=== PATIENT | male | born 1945 | race Caucasian/White ===

== ENCOUNTER 2022-03-11 02:46 | Inpatient (IN) | payer BC ==
[~2022-03-11] VITALS: Ht 177.8 cm; Wt 77.2 kg
[2022-03-11 03:35] LABS: ALANINE AMINOTRANSFERASE 147 U/L (12-78); ALBUMIN 2.2 G/DL (3.4-5.0); ALBUMIN/GLOBULIN RATIO 0.6 (1.1-1.5); ALKALINE PHOSPHATASE 111 IU/L (46-116); ANION GAP 7 (8-16); ASPARTATE AMINO TRANSFERASE 137 U/L (10-37); BLOOD UREA NITROGEN 28 MG/DL (7-18); BUN/CREATININE RATIO 21.7 (5.4-32.0); CALCIUM 8.3 MG/DL (8.5-10.1); CHLORIDE 102 MMOL/L (99-107); CREATININE 1.29 MG/DL (0.60-1.10); GLUCOSE 126 MG/DL (70-104); LIPASE 142 U/L (73-393); POTASSIUM 3.6 MMOL/L (3.5-5.1); SODIUM 135 MMOL/L (135-145); TOTAL CARBON DIOXIDE 25.9 MMOL/L (24-32); TOTAL PROTEIN 5.8 G/DL (6.4-8.2); eGFR 54 ML/MIN
[2022-03-11 03:52] LABS: BASOPHILS # (AUTO) 0.1 X10'3 (0-0.2); BASOPHILS % (AUTO) 0.6 % (0-1); EOSINOPHILS % (AUTO) 0.1 % (0-6); HEMATOCRIT 35.2 % (42.0-52.0); LYMPHOCYTES # (AUTO) 0.5 X10'3 (1.1-4.8); LYMPHOCYTES % (AUTO) 3.9 % (21-51); MEAN CORPUSCULAR HEMOGLOBIN 30.2 PG (27.0-31.0); MEAN CORPUSCULAR HGB CONC 34.1 g/dL (33.0-36.5); MEAN CORPUSCULAR VOLUME 88.6 FL (78-98); MEAN PLATELET VOLUME 8.9 FL (7.4-10.4); MONOCYTES # (AUTO) 1.4 X10'3 (0-0.9); MONOCYTES % (AUTO) 10.4 % (2-12); NEUTROPHILS # (AUTO) 11.4 X10'3 (1.8-7.7); PLATELET COUNT 254 X10'3 (140-440); RED BLOOD COUNT 3.97 X10'6 (4.70-6.10); RED CELL DISTRIBUTION WIDTH 14.1 % (11.5-14.5); WHITE BLOOD COUNT 13.4 X10'3 (4.5-11.0)
[2022-03-11] MEDS ORDERED: ketorolac trometh. 30mg/ml inj. IV ONE (04:20)
[2022-03-11] MEDS ORDERED: acetaminophen 325mg tablet PO ONE (04:20)
[2022-03-11] MEDS ORDERED: normal saline 1000ml 1,000 ML IV ONE (04:20)
--- NOTE | 2022-03-11 06:34 | NUR ---
Receieved report from Lori.
[2022-03-11 06:44] LABS: CLARITY,URINE CLEAR (Clear); COLOR,URINE YELLOW (Yellow); GLUCOSE, URINE NEGATIVE (Neg); KETONES,URINE 15 mg/dl (Neg); LEUKOCYTE ESTERASE ,URINE NEGATIVE (Neg); NITRITES, URINE NEGATIVE (Neg); OCCULT BLOOD,URINE NEGATIVE (Neg); PROTEIN,URINE TRACE mg/dl (Neg)
[2022-03-11 06:53] LABS: UA COLLECTION TYPE NON-SPECIFIED
[2022-03-11 06:54] LABS: BACTERIA,URINE NONE SEEN /HPF (Neg); MUCUS STRANDS FEW /LPF (Neg); RBC,URINE 0-2 /HPF (0-2); SQUAMOUS EPITHELIAL CELL,UR NONE SEEN /LPF (FEW); WBC,URINE 0-4 /HPF (0-4)
--- NOTE | 2022-03-11 08:30 | NUR ---
January redmond in [facility] - 03/11/22 at 0940 by ELBA Pt eating breakfast ,tolerating well, continues to be monitored.
--- NOTE | 2022-03-11 09:35 | NUR ---
Pt is admitted to hospital, ''needs to leave and go home'', tried to encourage pt to stay, Dr Noonan made aware.
--- NOTE | 2022-03-11 09:42 | NUR ---
Pt agreed to stay and be admitted after being seen by Dr Noonan. Pt awaiting to be seen by Hospitalist.
[2022-03-11] MEDS ORDERED: magnesium 4gm in 100ml NS 100 ML IV PRN (10:30)
[2022-03-11] MEDS ORDERED: acetaminophen 325mg tablet PO PRN ×2 (10:30)
[2022-03-11] MEDS ORDERED: magnesium 2GM in 50ml NS 50 ML IV PRN (10:30)
[2022-03-11] MEDS ORDERED: HYDROcodone/acetaminophen 5mg/325mg tablet PO PRN (10:30)
[2022-03-11] MEDS ORDERED: potassium CL 10mEq/100ml bag 100 ML IV PRN (10:30)
[2022-03-11] MEDS ORDERED: ondansetron/PF 4mg/2ml inj IV PRN (10:30)
[2022-03-11] MEDS ORDERED: HYDROcodone/acetaminophen 10/325mg tab PO PRN (10:30)
[2022-03-11] MEDS ORDERED: POTASSIUM BICARB 20meq eff tab 20 MEQ TABLET.EFF PO PRN ×2 (10:30)
--- NOTE | 2022-03-11 11:30 | NUR ---
Presting quietly , easily aroused but no acute distress noted. Pt continues to be monitored for changes.
--- NOTE | 2022-03-11 13:30 | NUR ---
No change in pt's condition, will continue to monitor.
[2022-03-11] MEDS: normal saline 1000ml 1,000 ML IV SCH ×2 (13:38→22:00)
--- NOTE | 2022-03-11 17:39 | NUR ---
Pt sitting up in bed, awaiting bed for admission.
[2022-03-11] MEDS ORDERED: VENL150C58 PO (18:30)
--- NOTE | 2022-03-11 18:33 | NUR ---
Report given to Lori.
[2022-03-11] MEDS ORDERED: enoxaparin 40mg/0.4ml syringe SQ SCH (20:00)
[2022-03-11] MEDS ORDERED: LORazepam 2 mg/ml vial IV PRN (20:30)
[2022-03-11] MEDS: docusate sod 100mg capsule PO SCH (20:40)
[2022-03-11] MEDS: K and/or MAG REPLACEMENT MC SCH (20:41)
[2022-03-11] MEDS: diatr meglu/diatrizoate 30ml oral sol.-(3 dose) bottle PO SCH (21:39)
--- NOTE | 2022-03-11 21:40 | NUR ---
pt encouraged to drink the contrast. pt refusing to drink much more. pt is actually wanting to go home and doesn't want to be here more than 5 hours. pt stated "i want to go home and if i just there that is okay..." frq monitoring.
[2022-03-11 22:00] VITALS: BP 105/58
--- NOTE | 2022-03-11 22:30 | NUR ---
pt encouraged to drink contrast. got about half the drink down. pt refusing to drink any more at this time. pt states he is feeling nauseous and it taste gross. attempted to dart pt but he seems slightly confused and anxious about being here and wanting to leave. ativan given per MD order. pt resting, eyes closed. frq monitoring
[2022-03-12 06:00] VITALS: BP 97/47
[2022-03-12 06:08] LABS: BASOPHILS % (AUTO) 0.1 % (0-1); EOSINOPHILS # (AUTO) 0.1 X10'3 (0-0.9); EOSINOPHILS % (AUTO) 0.5 % (0-6); HEMATOCRIT 33.6 % (42.0-52.0); HEMOGLOBIN 11.6 g/dl (14.0-17.9); LYMPHOCYTES # (AUTO) 0.5 X10'3 (1.1-4.8); LYMPHOCYTES % (AUTO) 4.7 % (21-51); MEAN CORPUSCULAR HEMOGLOBIN 30.9 PG (27.0-31.0); MEAN CORPUSCULAR HGB CONC 34.7 g/dL (33.0-36.5); MEAN CORPUSCULAR VOLUME 89.1 FL (78-98); MEAN PLATELET VOLUME 8.4 FL (7.4-10.4); MONOCYTES # (AUTO) 0.9 X10'3 (0-0.9); MONOCYTES % (AUTO) 8.9 % (2-12); NEUTROPHILS % (AUTO) 85.8 % (42-75); PLATELET COUNT 273 X10'3 (140-440); RED BLOOD COUNT 3.77 X10'6 (4.70-6.10); RED CELL DISTRIBUTION WIDTH 14.1 % (11.5-14.5); WHITE BLOOD COUNT 10.5 X10'3 (4.5-11.0)
--- NOTE | 2022-03-12 06:13 | NUR ---
Problems reprioritized. Patient report given, questions answered & plan of care reviewed with Tiffany URIOSTEGUI.
--- NOTE | 2022-03-12 06:15 | NUR ---
received report from macarena choudhury
[2022-03-12] MEDS: normal saline 1000ml 1,000 ML IV SCH (06:30)
[2022-03-12 06:32] LABS: ALANINE AMINOTRANSFERASE 100 U/L (12-78); ALBUMIN/GLOBULIN RATIO 0.6 (1.1-1.5); ALKALINE PHOSPHATASE 86 IU/L (46-116); ANION GAP 8 (8-16); ASPARTATE AMINO TRANSFERASE 64 U/L (10-37); BILIRUBIN,TOTAL 0.6 MG/DL (0.1-1.0); BLOOD UREA NITROGEN 27 MG/DL (7-18); BUN/CREATININE RATIO 23.9 (5.4-32.0); CALCIUM 7.9 MG/DL (8.5-10.1); CHLORIDE 108 MMOL/L (99-107); CREATININE 1.13 MG/DL (0.60-1.10); GLUCOSE 87 MG/DL (70-104); MAGNESIUM 1.8 MG/DL (1.5-2.4); POTASSIUM 3.9 MMOL/L (3.5-5.1); SODIUM 141 MMOL/L (135-145); TOTAL CARBON DIOXIDE 25.5 MMOL/L (24-32); TOTAL PROTEIN 5.2 G/DL (6.4-8.2); eGFR 63 ML/MIN
[2022-03-12] MEDS: diatr meglu/diatrizoate 30ml oral sol.-(3 dose) bottle PO SCH ×2 (07:19→10:40)
[2022-03-12] MEDS: K and/or MAG REPLACEMENT MC SCH (07:57)
[2022-03-12] MEDS: docusate sod 100mg capsule PO SCH (07:57)
[2022-03-12] MEDS ORDERED: NORMAL SALINE IV PRN (08:30)
[2022-03-12] MEDS ORDERED: SINCALIDE IV PRN (08:30)
[2022-03-12] MEDS ORDERED: piperacillin/tazo 4.5gm/100ml 100 ML IV SCH (08:37)
--- NOTE | 2022-03-12 09:37 | NUR ---
nuc med scan called to notify me that the scan will not be done today but possibly tomorrow it will be done, hospitalist aware of this change
[2022-03-12 10:00] VITALS: BP 107/53
== END 2022-03-12 12:30 | disposition left against medical advice (07) | DRG 444 ==
LOC: ER 02:48 → ED HOLD 10:31 → ORTHO 4S 21:23
PROVIDERS: ADMIT Family Medicine; ATTEND Family Medicine
PROC: BW211ZZ Computerized Tomography (CT Scan) of Abdomen and Pelvis using Low Osmolar Contrast (ICD-10-PCS; principal; 2022-03-12)
DX: K80.00 Calculus of gallbladder with acute cholecystitis without obstruction (principal); N17.0 Acute kidney failure with tubular necrosis; K56.609 Unspecified intestinal obstruction, unspecified as to partial versus complete obstruction; R74.01 Elevation of levels of liver transaminase levels; K82.8 Other specified diseases of gallbladder; E86.0 Dehydration; F32.A Depression, unspecified; Z53.29 Procedure and treatment not carried out because of patient's decision for other reasons; Z85.038 Personal history of other malignant neoplasm of large intestine; Z90.49 Acquired absence of other specified parts of digestive tract; Z82.49 Family history of ischemic heart disease and other diseases of the circulatory system; Z91.19 Patient's noncompliance with other medical treatment and regimen
CPT/HCPCS: 36415; 74176; 74177; 76700; 80053; 81001; 83690; 83735; 85025; 87081; 97116; 97161; 97530; 99285; A6258; G0378; J1650; J1885; J2060; J2543; J3490; J7030; Q9963